=== PATIENT | male | born 1950 | race Caucasian/White ===

== ENCOUNTER → 2023-12-29 | Outpatient (CLI) | payer MEDICARE ==
--- NOTE | 2023-12-29 12:57 | MR ---
EXAMINATION TYPE: MR angio head wo con DATE OF EXAM: 12/29/2023 COMPARISON: None HISTORY: 73-year-old male I 7 2.9, aneurysm, Memory loss. TECHNIQUE: High-resolution 3-D [id number] imaging of the [place] without IV contrast. Ro tational 3-D reconstructions generated on a dedicated independent workstation. FINDINGS: Slightly more dominant right vertebral artery. Preserved flow related of both vertebral and basilar a rtery. There is persistent origin left posterior cerebral artery with a hypoplastic P1 segment left PC A. On the right, there is a prominent posterior communicating artery. Otherwise, the posterior circulati on is patent. The bilateral internal carotid arteries as well as the remainder of the anterior circulation is paten t. There is a short segment fenestration of the A1 segment right MELIS[place] adjacent to the anterior indicat ing artery. No aneurysmal changes identified. IMPRESSION: 1. Some anatomic variation with persistent origin left [employer] and short segment fenestration A1 se gment right MELISSA. 2. No large vessel intracranial arterial occlusion, significant stenosis, or aneurysmal change is see n. [facility], , 12/29/2023 12:54 PM
== END | disposition home or self-care (01) ==
LOC: RADMRIMAIN 09:41
PROVIDERS: ATTEND Psychiatry & Neurology Neurology
DX: I72.9 Aneurysm of unspecified site (principal)
CPT/HCPCS: 70544